=== PATIENT | male | born 1955 | race Caucasian/White ===

== ENCOUNTER 2021-08-05 11:00 | Outpatient (RCR) | payer BC, MEDICARE, SELFPAY ==
[2021-05-15 08:39] VITALS: BP 92/0; PULSE 86; RESP 16; O2SAT 98
[2021-05-15 08:41] VITALS: PULSE 86
--- NOTE | 2021-05-25 11:13 | PCCPR ---
Absent- called in stating Ugo was sick. Has bad migraines that cause him to get sick.
[2021-06-15 12:08] LABS: Glucose Point of Care 152 mg/dl (65-105)
[2021-07-02 11:34] LABS: Glucose Point of Care 59 mg/dl (65-105)
[2021-07-02 11:34] LABS: Glucose Point of Care 87 mg/dl (65-105)
[2021-07-20 12:25] LABS: Glucose Point of Care 65 mg/dl (65-105)
[2021-07-20 12:25] LABS: Glucose Point of Care 82 mg/dl (65-105)
[2021-07-23 13:38] LABS: Glucose Point of Care 67 mg/dl (65-105)
== END 2021-08-05 16:51 | disposition home or self-care (01) ==
LOC: ANHCPREHAB 11:00
PROVIDERS: PCP Internal Medicine; Visit Provider Internal Medicine
DX: I50.89 Other heart failure (principal)
CPT/HCPCS: 93798